=== PATIENT | male | born 1995 ===

== ENCOUNTER 2018-05-23 17:55 | Emergency (ER) | payer MEDICAID ==
[2018-05-23 18:17] VITALS: BP 106/74
--- NOTE | 2018-05-23 18:37 | UC ---
Lower Extremity/Ankle HPI - HPI Summary HPI Summary: This is marco a Nina documenting for attending Mary Araujo MD. This patient is a 23 year old M presenting to [facility] with a chief complaint of L ankle pain after jumping off a deck 2 days ago. Patient states that Is approximately 3-4 feet high. Patient states he had some pain that has improved since the time of injury. The patient rates the pain 3/10 in severity. Symptoms aggravated by ambulation. Symptoms alleviated by nothing. Patient denies knee or hip injury. Patient denies any other injuries. Did not fall. Did not strike his head. Patient's present cars. Patient states he did play softball yesterday. Patient states he continues to walk with a limp even though with Josue wrap so he was directed to come for further evaluation Medications reviewed this visit. - History of Current Complaint Chief Complaint: UCLowerExtremity Stated Complaint: L ANKLE INJURY Time Seen by Provider: 05/23/18 18:14 Hx Obtained From: Patient Onset/Duration: Sudden Onset, Lasting Days, Still Present Severity Initially: Mild Severity Currently: Mild Pain Intensity: 3 Pain Scale Used: 0-10 Numeric Aggravating Factor(s): Ambulation Alleviating Factor(s): Nothing Able to Bear Weight: Yes - Allergies/Home Medications Allergies/Adverse Reactions: Allergies Allergy/AdvReac Type Severity Reaction Status Date / Time chlorpromazine Allergy Severe Anaphylatic Verified 05/23/18 18:17 [From Thorazine] Shock Home Medications: Home Medications Escitalopram Oxalate [Lexapro] 5 mg PO DAILY WITH MEAL 05/23/18 [History Confirmed 05/23/18] Nicotine PATCH 14 MG/24 HR* 1 05/23/18 [History] PMH/Surg Hx/FS Hx/Imm Hx Previously Healthy: No Endocrine History: Other Other Endocrine History: Negative diabetes Psychological History: Anxiety, Depression - Surgical History Surgical History: None Surgery Procedure, Year, and Place: denies - Family History Known Family History: Negative: Cardiac Disease, Diabetes - Social History Occupation: Unemployed Lives: Alone Alcohol Use: None Substance Use Type: Cocaine Smoking Status (MU): Former Smoker Review of Systems Constitutional: Other - Negative fever Musculoskeletal: Other: - Positive L ankle pain All Other Systems Reviewed And Are Negative: Yes Physical Exam - Summary Physical Exam Summary: Vital Signs Reviewed: Yes A+Ox3, no distress Eyes: Conjunctiva Clear ENT: Hearing grossly normal neck: supple Respiratory: Positive: No respiratory distress, No accessory muscle use Cardiovascular: skin color reflect adequate perfusion Musculoskeletal Exam: + SLE + flex/ext knee, ankle. + TTP anterior/inferior aspect of lateral malleolus. No crepitus + TTP anterior medial malleolus. No proximal tib/fib pain Neurological: Positive: Alert, ambulatory without difficulty + sensation throught Psychological: Positive: Normal Response To Family Skin: Positive: no rash, + ecchymosis medial aspect base of foot, medial sole Triage Information Reviewed: Yes Vital Signs: Initial Vital Signs Temp 98.3 F 05/23/18 18:13 Pulse 70 05/23/18 18:13 Resp 20 05/23/18 18:13 BP 106/74 05/23/18 18:13 Pulse Ox 99 05/23/18 18:13 Diagnostics - Radiology Ankle XR Radiology Interpretation Completed By: Radiologist - Ankle XR reveals, per radiologist, Normal articular alignment. No cortical disruption or suspicious trabecular irregularity to suggest fracture. Small talocrural joint effusion. Soft tissue swelling both medially and laterally. Physician has reviewed this radiology report. Re-Evaluation - Re-Evaluation First Eval Comment: Reviewed x-ray with patient. We'll place an Josue wrap and gel splint. Patient declines crutches here as he hasn't has them available to him. Ice, elevate, rest, follow up with sports medicine. Lisa forms completed Lower Extremity Course/Dx - Course Course Of Treatment: Patient presents with ongoing discomfort in his left ankle that started after jumping off of a deck 2 or 3 days ago. Patient without any pain or injury elsewhere. Patient states the swelling has decreased but does have ecchymosis to the medial aspect of his left sole. Patient has not taken anything for pain. Patient does have an Josue wrap on it. Patient states he is walking with a slight limp. On exam patient with tenderness bilateral malleoli. Will check imaging. Patient is a resident at [facility] - discussed with patient Motrin/Tylenol. Ice. Elevation. Recommend patient use crutches. Patient states there are crutches at his facility and declined them here. We' ll refer patient for follow-up to sports medicine or orthopedics. Patient comfortable in agreement with plan. - Differential Dx/Diagnosis Provider Diagnoses: left ankle sprain Discharge - Sign-Out/Discharge Documenting (check all that apply): Patient Departure - Discharge Plan Condition: Stable Disposition: HOME Patient Education Materials: Ankle Sprain (ED) Referrals: Sports Medicine [facility] [Provider Group] Additional Instructions: -wear josue wrap and air splint for comfort and support -apply ice (20 min at a time) every 2-3 hours for the next 2 days -it is recommended you use crutches until you can walk normally without a limp -Elevate your leg - this will help with swelling and pain -Okay to alternate ibuprofen (Advil, Motrin) and Tylenol every 3 hours for pain. Take with food. Do NOT take for more than 4-5 days -Contact your doctor to arrange a follow-up appointment next week. Contact your doctor or return with questions or concerns - please note that your xrays were not read by a radiologist jeramie. They will be read by a radiologist tomorrow night. If you have a broken bone (fracture) or other finding you will receive a call from a care team provider - Billing Disposition and Condition Condition: STABLE Disposition: Home
--- NOTE | 2018-05-23 19:11 | RAD ---
Indication: Anterior and medial LEFT ankle pain following jumping injury. Comparison: No relevant prior exams available on the [facility] PACS for comparison. Technique: AP, mortise, and lateral views LEFT ankle. REPORT AND IMPRESSION: #. Normal articular alignment. #. No cortical disruption or suspicious trabecular irregularity to suggest fracture. #. Small talocrural joint effusion. #. Soft tissue swelling both medially and laterally.
== END 2018-05-23 19:47 | disposition home or self-care (01) ==
LOC: UCEAST 17:55
DX: S93.402A Sprain of unspecified ligament of left ankle, initial encounter (principal); F32.9 Major depressive disorder, single episode, unspecified; F41.9 Anxiety disorder, unspecified; Z79.899 Other long term (current) drug therapy; X58.XXXA Exposure to other specified factors, initial encounter; Z88.8 Allergy status to other drugs, medicaments and biological substances; Y93.39 Activity, other involving climbing, rappelling and jumping off; Y92.89 Other specified places as the place of occurrence of the external cause; Z87.891 Personal history of nicotine dependence
CPT/HCPCS: 99212; G0463